=== PATIENT | female | born 1975 | race Caucasian/White ===

== ENCOUNTER 2017-08-20 15:15 | Observation (INO) | END 2017-08-22 14:42 | disposition home or self-care (01) ==

== ENCOUNTER 2017-12-24 20:21 | Emergency (ER) | END 2017-12-24 22:58 | disposition home or self-care (01) ==

== ENCOUNTER 2018-11-22 18:07 | Emergency (ER) | payer SELFPAY ==
[~2018-11-22] VITALS: Ht 162.6 cm; Wt 132.0 kg
[~2018-11-22 18:07] MED LIST: BACITUD TOP; CLIN300C10 PO; FURO20TA3 PO; HYDR-3980 PO; HYDR200T39 PO; IBUP-1542 PO; PANT40TA4 PO; PRAV10TA43 PO; PRED10TA PO; PRED1TAB17 PO; VALA500T PO
[2018-11-22 18:17] VITALS: BP 135/83; PULSE 84; RESP 18; Ht 162.6 cm; Wt 132.0 kg
[2018-11-22] MEDS ORDERED: DEXAMETHASONE 10 MG/ML 1 ML INJ IM ONE (19:30)
[2018-11-22] MEDS ORDERED: HYDROCODONE/APAP (5/325) TAB PO ONE (19:30)
== END 2018-11-22 20:23 | disposition home or self-care (01) ==
LOC: FTE 18:07
DX: B02.9 Zoster without complications (principal); I10 Essential (primary) hypertension; L93.0 Discoid lupus erythematosus
CPT/HCPCS: 96372; 99284; J1100